=== PATIENT | male | born 1995 | race Caucasian/White ===

== ENCOUNTER 2021-04-13 13:34 | Emergency (ER) | payer OTHER ==
[~2021-04-13 13:34] MED LIST: ACETAMINOPHEN325 MG PO; NORCO 5-325 TA1 EACH PO
[2021-04-13] MEDS ORDERED: NORCO 5-325 TA1 EACH PO (19:37)
== END 2021-04-13 16:22 | disposition home or self-care (01) ==
LOC: FER 13:34
DX: S92.321A Displaced fracture of second metatarsal bone, right foot, initial encounter for closed fracture (principal); S92.331A Displaced fracture of third metatarsal bone, right foot, initial encounter for closed fracture; S92.341A Displaced fracture of fourth metatarsal bone, right foot, initial encounter for closed fracture; F17.290 Nicotine dependence, other tobacco product, uncomplicated; W01.0XXA Fall on same level from slipping, tripping and stumbling without subsequent striking against object, initial encounter; Y92.89 Other specified places as the place of occurrence of the external cause
CPT/HCPCS: 73610; 73630